=== PATIENT | female | born 1975 | race Caucasian/White ===

== ENCOUNTER → 2017-01-27 | Outpatient (CLI) | payer OTHER | LOC: FIMAGING 10:57 | PROVIDERS: ATTEND Family Medicine | DX: Z12.31 Encounter for screening mammogram for malignant neoplasm of breast (principal) | CPT/HCPCS: G0202 ==

== ENCOUNTER 2017-12-17 15:06 | Emergency (ER) | payer OTHER ==
--- NOTE | 2017-12-17 15:23 | CPEKG ---
Heart Rate: 70 RR Interval: 857 P-R Interval: 144 QRSD Interval: 96 QT Interval: 388 QTC Interval: 419 P Livingston: 79 QRS Livingston: 73 T Wave Livingston: 26 EKG Severity - NORMAL ECG - EKG Impression: SINUS RHYTHM Electronically Signed By: Maday Gentile 17-Dec-2017 21:02:17
--- NOTE | 2017-12-17 15:52 | EDPHY ---
H & P Stated Complaint: chest pressure/sob approx 1 week Time Seen by Provider: 12/17/17 15:27 HPI/ROS: CHIEF COMPLAINT: Chest pain HISTORY OF PRESENT ILLNESS: The patient is a 42 y/o female complaining of constant, mild sternal chest pain for the last week. She has not done much cardio exercise over the last year due to social stresses and recently began exercising again. This discomfort seems worse with caffeine, but actually felt slightly better while jogging. It is not worse with eating or breathing. No associated dyspnea, nausea, vomiting, diaphoresis, abdominal pain, lightheadedness. She has not taken anything for the pain. She denies recent illness, recent trauma, fever, cough, leg swelling, recent long travel, or hormone use. Her father, who is a smoker, had an IL around age 49. Otherwise no known cardiac or PE risk factors. REVIEW OF SYSTEMS: A 10 point review of systems was performed and is negative with the exception of the elements mentioned in the history of present illness. Past medical history: Obsessive compulsive disorder age 14/anxiety. Past surgical history: Denies Family history: Father had IL around age 49, was smoker, still living. No cardiac disease in other family members. Social history: Nonsmoker. Occasional alcohol use. with children. Frequently does yoga. PCP: Dr. Omaira Blakely. Adult Physical: General Appearance: Alert, no acute distress. Eyes: Pupils equal and round, no conjunctival injection, no discharge. ENT, Mouth: Mucous membranes are moist, no oropharyngeal erythema or edema. Neck: No lymphadenopathy, supple. Respiratory: Lungs are clear to auscultation; no wheezes, rales, or rhonchi. No thoracic tenderness to palpation, no crepitus. Cardiovascular: Regular rate and rhythm; no murmur, rub, or gallop. Gastrointestinal: Abdomen is soft and non tender, no masses or organomegaly. Skin: Warm and dry, no rashes, normal color. Back: Nontender to palpation over the thoracolumbar spine. Extremities: No lower extremity edema, no calf tenderness or swelling. Neurological: Alert and oriented. Moving all four extremities easily and equally. Psychiatric: Normal affect. - Personal History LMP (Females 10-55): 1-7 Days Ago Current Tetanus/Diphtheria Vaccine: Unsure - Medical/Surgical History Hx Asthma: No Hx Chronic Respiratory Disease: No Hx Diabetes: No Hx Cardiac Disease: No Hx Renal Disease: No Hx Cirrhosis: No Hx Alcoholism: No Hx HIV/AIDS: No Hx Splenectomy or Spleen Trauma: No Other PMH: denies - Social History Smoking Status: Never smoked Constitutional: Initial Vital Signs Temperature (C) 36.7 C 12/17/17 15:08 Heart Rate 80 12/17/17 15:08 Respiratory Rate 18 12/17/17 15:08 Blood Pressure 121/80 H 12/17/17 15:08 O2 Sat (%) 99 12/17/17 15:08 O2 Delivery Mode Room Air Allergies/Adverse Reactions: Sulfa (Sulfonamide Antibiotics) Allergy (Unknown, Verified 12/17/17 15:07) Home Medications: Medication Instructions Recorded NK [No Known Home Meds] 12/17/17 Medical Decision Making - Diagnostics EKG Interpretation: 12 lead EKG is interpreted in Trace master View by emergency department physician. Imaging: I viewed and interpreted images myself ED Course/Re-evaluation: This is a healthy 42 y/o female who presents with a 1-week history of constant, mild sternal chest discomfort after she began exercising again recently. Benign exam. Plan for IV, labs, EKG. 20mg IV Pepcid ordered. The 12 lead EKG was interpreted by myself. Sinus mechanism rate 70. See hard copy and/or "tracemaster" electronic copy for interpretation. Chest x-ray: no infiltrate. Labs are normal. I do not suspect an acute coronary syndrome. Wells scoring for PE is zero. I do not recommend further work up for PE. I do not think that this is pericarditis although that remains a possibility. Muscle strain is also in the differential. Reassessed patient and discussed work up. She is feeling well and will be discharged home with standard follow up instructions and return precautions. Recommended trying OTC Pepcid for reflux symptoms. She is comfortable with this plan. Differential Diagnosis: Chest pain including but not limited to myocardial ischemia, pulmonary embolus, pericarditis, chest wall pain, pleural inflammation and pulmonary infectious causes. - Data Points Laboratory Results: Laboratory Results 12/17/17 15:20 12/17/17 15:20 Medications Given: Discontinued Medications Famotidine (Pepcid) 20 mg PO EDNOW ONE Stop: 12/17/17 15:54 Last Admin: 12/17/17 15:59 Dose: 20 mg Departure - Departure Disposition: Home, Routine, Self-Care Clinical Impression: Chest pain Qualifiers: Chest pain type: other chest pain Qualified Code(s): R07.89 - Other chest pain ; R07.8 - Other chest pain Condition: Good Instructions: Famotidine (By mouth), Chest Pain (ED), Gastroesophageal Reflux Disease (ED) Additional Instructions: Follow up with your primary care provider this week. You can try Pepcid, available [id number], as directed on the packaging for acid reflux symptoms. Return to the ED for worsening of condition. Referrals: Omaira Blakely MD [Primary Care Provider] - As per Instructions Report Scribed for: Maday Gentile Report Scribed by: Melissa Fernandez Date of Report: 12/17/17 Time of Report: 15:52 Physician Review and Approval Statement: 12/22/17 15:20 Portions of this note were transcribed by the ophthalmic medical technician. I, Dr. Maday Gentile, personally performed the history, physical exam, and medical decision- making; and confirmed the accuracy of the information in the transcribed note.
[2017-12-17] MEDS ORDERED: FAMOTIDINE 20 MG TAB PO ONE (15:53)
[2017-12-17 15:57] LABS: PLATELET COUNT 251 10^3/uL (150-400)
[2017-12-17 17:05] VITALS: BP 119/76
== END 2017-12-17 17:03 | disposition home or self-care (01) ==
DX: R07.89 Other chest pain (principal)